=== PATIENT | female | born 1975 | race Two or more races ===

== ENCOUNTER → 2019-12-27 | Outpatient (CLI) | payer BC ==
[~2019-12-27] MED LIST: ORILISSA PO
[2019-12-27 14:48] LABS: MICROSCOPIC INDICATED
[2019-12-27 14:52] LABS: BASOPHILS # (AUTO) 0.02 x10^3/uL (0-0.1); BASOPHILS % (AUTO) 0 % (0-1); EOSINOPHILS # (AUTO) 0.27 x10^3/uL (0-0.4); EOSINOPHILS % (AUTO) 3 % (1-7); LYMPHOCYTES # (AUTO) 2.68 x10^3/uL (1-3.4); LYMPHOCYTES % (AUTO) 33 % (22-44); MD NO; MEAN CORPUSCULAR HEMOGLOBIN 30.3 pg (27.0-34.8); MEAN CORPUSCULAR HGB CONC 33.2 g/dL (32.4-35.8); MEAN CORPUSCULAR VOLUME 91.2 fL (80-100); MEAN PLATELET VOLUME 8.7 fL (7.4-10.4); MONOCYTES # (AUTO) 0.38 x10^3/uL (0.2-0.8); MONOCYTES % (AUTO) 5 % (2-9); NEUTROPHILS # (AUTO) 4.69 x10^3/uL (1.8-6.8); NEUTROPHILS % (AUTO) 58 % (42-75); PLATELET COUNT 322 x10^3/uL (130-400); RED BLOOD COUNT 5.04 x10^6/uL (3.82-5.3); RED CELL DISTRIBUTION WIDTH 13.6 % (9.6-15.2)
[2019-12-27 15:04] LABS: ALBUMIN 3.9 g/dL (3.4-5.0); ANION GAP 7 mmol/L (5-15); CHLORIDE 107 mmol/L (98-107)
[2019-12-27 15:10] LABS: ALANINE AMINOTRANSFERASE 67 U/L (12-78); ALKALINE PHOSPHATASE 86 U/L (45-117); BILIRUBIN,TOTAL 0.5 mg/dL (0.2-1.0); CREATININE 0.78 mg/dL (0.55-1.02); TOTAL PROTEIN 8.1 g/dL (6.4-8.2)
== END | disposition home or self-care (01) ==
LOC: STAR 13:47
PROVIDERS: ATTEND Student in an Organized Health Care Education/Training Program
DX: Z01.818 Encounter for other preprocedural examination (principal); Z64.1 Problems related to multiparity
CPT/HCPCS: 36415; 80053; 81001; 84702; 85025; 87086

== ENCOUNTER 2020-01-02 12:11 | Day surgery (SDC) | payer BC ==
[~2020-01-02] VITALS: Ht 167.6 cm; Wt 96.9 kg
[2020-01-02] MEDS ORDERED: LACTATED RINGERS 1,000 ML IV SCH (12:45)
[2020-01-02 12:48] VITALS: BP 141/96
[2020-01-02] MEDS ORDERED: CHLORHEXIDINE 15 ML UDC ONE (12:57)
[2020-01-02] MEDS ORDERED: SCOPOLAMINE 1MG PATCH TD SCH (13:00)
[2020-01-02] MEDS ORDERED: CHLORHEXIDINE 15 ML UDC MM ONE (13:00)
[2020-01-02] MEDS ORDERED: ACETAMINOPHEN 500 MG TABLET PO ONE (13:00)
[2020-01-02 13:02] LABS: HCG UR SG 1.015 (1.003-1.030)
[2020-01-02] MEDS ORDERED: MIDAZOLAM 1 MG/ML, 2ML ONE (13:21)
[2020-01-02] MEDS ORDERED: FENTANYL PF 250 MCG/5ML ONE (13:21)
[2020-01-02] MEDS ORDERED: BUPIVACAINE/PF-EPI 0.25% 1:200K ONE (13:41)
[2020-01-02] MEDS ORDERED: PROPOFOL 10 MG/ML, 20ML ONE (14:02)
[2020-01-02] MEDS ORDERED: SUGAMMADEX 200 MG/2 ML IVPush ONE (14:02)
[2020-01-02] MEDS ORDERED: ROCURONIUM 10 MG/ML,10ML ONE (14:02)
[2020-01-02] MEDS ORDERED: ONDANSETRON 2MG/ML, 2ML ONE (14:02)
[2020-01-02] MEDS ORDERED: DEXAMETHASONE 4 MG/ML, 1ML ONE (14:02)
[2020-01-02] MEDS ORDERED: DIAZEPAM 5 MG/ML, 2ML IVPush PRN (15:00)
[2020-01-02] MEDS ORDERED: MEPERIDINE/PF 25MG/0.5ML IVPush PRN (15:00)
[2020-01-02] MEDS ORDERED: ONDANSETRON 2MG/ML, 2ML IVPush PRN (15:00)
[2020-01-02] MEDS ORDERED: OXYcodone 5 MG/5 ML ORAL.SOL UDC PO PRN (15:00)
[2020-01-02] MEDS ORDERED: PROMETHAZINE 25 MG/ML, 1ML IVPush PRN (15:00)
[2020-01-02] MEDS ORDERED: ACETAMINOPHEN 325 MG TABLET PO PRN (15:00)
[2020-01-02] MEDS ORDERED: FENTANYL PF 100 MCG/2ML IV PRN (15:00)
[2020-01-02] MEDS ORDERED: HYDROmorphone 1 MG/ML, 1ML INJ IVPush PRN (15:00)
[2020-01-02] MEDS ORDERED: MEPERIDINE/PF 25MG/ML,1ML ONE (15:03)
[2020-01-02] MEDS ORDERED: OXYcodone 5 MG/5 ML ORAL.SOL UDC ONE (15:04)
[2020-01-02] MEDS ORDERED: FENTANYL PF 100 MCG/2ML ONE (15:24)
== END 2020-01-02 19:15 | disposition home or self-care (01) ==
LOC: OUT 12:11
PROVIDERS: ATTEND Student in an Organized Health Care Education/Training Program
DX: Z30.2 Encounter for sterilization (principal); Z11.59 Encounter for screening for other viral diseases; Z90.49 Acquired absence of other specified parts of digestive tract
CPT/HCPCS: 36415; 58670; 81025; 86850; 86900; 87635; 88302; J1100; J2175; J2250; J2405; J2704; J3010; J7120

== ENCOUNTER 2021-01-17 17:16 | Emergency (ER) | payer BC, OTHER ==
[~2021-01-17] VITALS: Ht 167.6 cm; Wt 94.7 kg
[2021-01-17 18:23] LABS: ALANINE AMINOTRANSFERASE 80 U/L (12-78); ALBUMIN 3.2 g/dL (3.4-5.0); ANION GAP 8 mmol/L (5-15); BASOPHILS % (AUTO) 1 % (0-1); CHLORIDE 106 mmol/L (98-107); CREATININE 0.68 mg/dL (0.55-1.02); EOSINOPHILS % (AUTO) 3 % (1-7); LYMPHOCYTES % (AUTO) 27 % (22-44); MEAN CORPUSCULAR HEMOGLOBIN 30.1 pg (27.0-34.8); MEAN CORPUSCULAR HGB CONC 33.7 g/dL (32.4-35.8); MEAN PLATELET VOLUME 8.8 fL (7.4-10.4); MONOCYTES % (AUTO) 6 % (2-9); NEUTROPHILS % (AUTO) 64 % (42-75); PLATELET COUNT 343 x10^3/uL (130-400); RED BLOOD COUNT 4.92 x10^6/uL (3.82-5.3); RED CELL DISTRIBUTION WIDTH 15.3 % (9.6-15.2)
[2021-01-17 18:28] LABS: ALKALINE PHOSPHATASE 89 U/L (45-117); BILIRUBIN,TOTAL 0.3 mg/dL (0.2-1.0); TOTAL PROTEIN 7.5 g/dL (6.4-8.2); TROPONIN I < 0.015 ng/mL (0.000-0.045)
[2021-01-17] MEDS ORDERED: KETOROLAC 30 MG/1 ML ONE (19:00)
[2021-01-17] MEDS ORDERED: KETOROLAC 30 MG/1 ML IM ONE (19:00)
[2021-01-17 21:04] VITALS: BP 155/95
[2021-01-17] MEDS ORDERED: OMNIPAQUE 350 MG/ML, 100ML BOTTLE ONE (22:00)
== END 2021-01-17 22:24 | disposition home or self-care (01) ==
LOC: ED 19:52
DX: R07.89 Other chest pain (principal)
CPT/HCPCS: 36415; 71045; 71275; 80053; 83880; 84484; 84703; 85025; 85379; 93005; 96372; 99285; J1885; Q9967